=== PATIENT | female | born 1995 | race African-American/Black ===

== ENCOUNTER 2020-10-18 14:10 | Emergency (ER) | payer MEDICAID ==
--- NOTE | 2020-10-18 14:59 | ER Document Report ---
ED Medical Screen (RME) - General Chief Complaint: Dizziness Stated Complaint: DIZZINESS, WEAKNESS Time Seen by Provider: 10/18/20 14:52 Notes: Patient is a G2, P1 24-year-old female who presents the emergency department who presents to the emergency department with dizziness. Patient states that she has had on and off dizziness. He is 30 weeks . Patient has history of anemia. States she is having [place] contractions. Denies having regular contractions. Exam: Soft, nontender abdomen. I have greeted and performed a rapid initial assessment of this patient. A comprehensive ED assessment and evaluation of the patient, analysis of test results and completion of medical decision making process will be conducted by an additional ED providers. - Related Data Allergies/Adverse Reactions: No Known Allergies Allergy (Verified 10/18/20 14:46) Physical Exam - Vital signs Vitals: Temp Pulse Resp BP Pulse Ox 97.8 F 64 18 136/61 H 99 10/18/20 14:16 10/18/20 14:16 10/18/20 14:16 10/18/20 14:16 10/18/20 14:16 Course - Vital Signs Vital signs: Temp Pulse Resp BP Pulse Ox 97.8 F 64 18 136/61 H 99 10/18/20 14:16 10/18/20 14:16 10/18/20 14:16 10/18/20 14:16 10/18/20 14:16
[2020-10-18 15:32] LABS: ABSOLUTE EOSINOPHILS # (AUTO) 0.1 10^3/uL (0.0-0.6); ABSOLUTE NEUT (AUTO) 8.8 10^3/uL (1.7-8.2); BASOPHILS % (AUTO) 0.3 % (0-2); EOSINOPHILS % (AUTO) 0.6 % (0-6); HEMATOCRIT 32.9 % (36.0-47.0); HEMOGLOBIN 10.9 g/dL (12.0-15.5); LYMPHOCYTES % (AUTO) 17.1 % (13-45); MEAN CORPUSCULAR HEMOGLOBIN 27.9 pg (27.0-33.4); MEAN CORPUSCULAR HGB CONC 33.2 g/dL (32.0-36.0); MEAN CORPUSCULAR VOLUME 84 fl (80-97); MONOCYTES % (AUTO) 8.3 % (3-13); PLATELET COUNT 209 10^3/uL (150-450); RED BLOOD COUNT 3.92 10^6/uL (3.72-5.28); RED CELL DISTRIBUTION WIDTH 13.6 % (11.5-14.0); SEGMENTED NEUTROPHILS % (AUTO) 73.7 % (42-78); TOTAL CELLS COUNTED % (AUTO) 100 %
[2020-10-18 15:42] LABS: AMORPHOUS SEDIMENT,URINE TRACE /HPF; APPEARANCE,URINE CLOUDY; BILIRUBIN,URINE NEGATIVE (NEGATIVE); COLOR,URINE YELLOW; GLUCOSE, URINE NEGATIVE (NEGATIVE); KETONES,URINE NEGATIVE (NEGATIVE); LEUKOCYTE ESTERASE,URINE LARGE (NEGATIVE); NITRITE,URINE NEGATIVE (NEGATIVE); PROTEIN,URINE NEGATIVE (NEGATIVE); URINE SPECIFIC GRAVITY 1.012; UROBILINOGEN,URINE NEGATIVE mg/dL (<2.0)
[2020-10-18 15:50] LABS: ALBUMIN 3.4 g/dL (3.5-5.0); ALKALINE PHOSPHATASE 53 U/L (38-126); ANION GAP 9 (5-19); ASPARTATE AMINO TRANSFERASE 32 U/L (14-36); BILIRUBIN,TOTAL 0.3 mg/dL (0.2-1.3); BLOOD UREA NITROGEN 7 mg/dL (7-20); CARBON DIOXIDE 22 mmol/L (22-30); CHLORIDE 103 mmol/L (98-107); GLUCOSE 87 mg/dL (75-110); POTASSIUM 4.2 mmol/L (3.6-5.0); TOTAL PROTEIN 6.6 g/dL (6.3-8.2)
--- NOTE | 2020-10-18 16:27 | ER Document Report ---
ED Dizziness/Weakness - General Chief Complaint: Dizziness Stated Complaint: DIZZINESS, WEAKNESS Time Seen by Provider: 10/18/20 14:52 Mode of Arrival: Ambulatory Information source: Patient Notes: 24-year-old female 2 para 1, 30 weeks presents to the emergency room complaining of intermittent weakness for the past 2 weeks. States is felt very fatigued. Patient states she has had intermittent dizziness for the past 2 days. Comes and goes only last a few seconds. States she feels like the room is spinning. Denies any nausea, vomiting, no urinary symptoms. No abdominal discomfort. Occasional boxing headaches in the evening but currently without pain. No vaginal bleeding. OB care is up-to-date. States she was told at her last OB visit a couple weeks ago that she was slightly anemic. Not currently on any additional medications other than her vitamin. Denies any fevers. TRAVEL OUTSIDE OF THE [place] IN LAST 30 DAYS: No - Related Data Allergies/Adverse Reactions: No Known Allergies Allergy (Verified 10/18/20 14:46) Past Medical History - General Information source: Patient - Social History Smoking Status: Never Smoker Frequency of alcohol use: None Drug Abuse: None Family History: Reviewed & Not Pertinent Review of Systems - Review of Systems Constitutional: Weakness EENT: No symptoms reported Cardiovascular: Dizziness Respiratory: No symptoms reported Gastrointestinal: No symptoms reported Musculoskeletal: No symptoms reported Skin: No symptoms reported Hematologic/Lymphatic: Anemia Neurological/Psychological: Weakness. denies: Headaches -: Yes All other systems reviewed and negative Physical Exam - Vital signs Vitals: Temp Pulse Resp BP Pulse Ox 97.8 F 64 18 136/61 H 99 10/18/20 14:16 10/18/20 14:16 10/18/20 14:16 10/18/20 14:16 10/18/20 14:16 - Notes Notes: GENERAL: Mild acute distress, non-toxic appearance. HEAD: Normal with no signs of head trauma. EYES: PERRLA, EOMI, conjunctiva normal, no discharge. EARS: Hearing grossly intact. NOSE: Normal. THROAT: Oropharynx is normal. NECK: Normal range of motion, no tenderness, supple, no lymphadenopathy, No adenopathy, no JVD. CHEST: Clear breath sounds bilaterally. No wheezes, rales, or rhonchi. CARDIAC: Regular rate and rhythm. S1 and S2, without murmurs, gallops, or rubs. VASCULAR: No Edema. Peripheral pulses normal and equal in all extremities. ABDOMEN: Gravid abdomen with no tenderness, no masses or pulsatile masses. No organomegaly. Positive bowel sounds x4. No CVA tenderness noted bilaterally. GASTROINTESTINAL: Bowel sounds normal LYMPATHTIC: No lymphadenopathy noted. MUSCULOSKELETAL: Good range of motion of all major joints. Extremities without clubbing, cyanosis or edema. NEUROLOGICAL: Alert and oriented x 3. No focal sensory or strength deficits. Speech normal. Follows commands appropriately. Negative Nylan Barany syndrome. PSYCHIATRIC: Normal Affect, judgement and mood. SKIN: Normal appearance with no rashes or lesions. Course - Re-evaluation Re-evalutation: 10/18/20 16:29 heart tones 137. Patient patient is currently asymptomatic. No acute distress noted. Reviewed all lab results with patient. Reviewed hemoglobin of 10.9 with hematocrit of 32.9 which is higher than her last appointment 2 weeks ago. No nystagmus. Patient was counseled importance of getting plenty of rest. Drinking plenty fluids. Daily exercise. She is to call her CONTRACT ASSOCIATE for follow- up appointment. She is pain-free on exam. Denies any pain at this time. Patient was given strict return to the emergency room guidelines. Return for any new or worsening symptoms. All questions were answered. Patient verbalized understanding and agrees with plan of care. 10/18/20 16:56 - Vital Signs Vital signs: Temp Pulse Resp BP Pulse Ox 98.2 F 64 20 106/57 L 95 10/18/20 17:01 10/18/20 14:16 10/18/20 17:00 10/18/20 17:01 10/18/20 17:00 - Laboratory Result Diagrams: 10/18/20 15:14 10/18/20 15:14 Laboratory results interpreted by me: 10/18/20 10/18/20 10/18/20 15:14 15:14 15:14 WBC 12.0 H Hgb 10.9 L Hct 32.9 L Absolute Neuts (auto) 8.8 H Sodium 134.3 L Albumin 3.4 L Beta HCG, Quant 85968.00 H Ur Leukocyte Esterase LARGE H Discharge - Discharge Clinical Impression: Dizziness Fatigue Qualifiers: Fatigue type: -related Trimester: third trimester Qualified Code(s): O26.813 - related exhaustion and fatigue, third trimester Condition: Stable Disposition: HOME, SELF-CARE Instructions: Dizziness ([facility]), Fatigue ([facility]) Additional Instructions: Make sure you are getting adequate rest, some exercise,. Increase your fluids. Call your CONTRACT ASSOCIATE for an outpatient follow-up appointment. Return to the emergency room for any new or worsening symptoms.
[2020-10-18 17:09] VITALS: BP 106/57
== END 2020-10-18 17:08 | disposition home or self-care (01) ==
LOC: ER 14:10
DX: O26.893 Other specified pregnancy related conditions, third trimester (principal); R42 Dizziness and giddiness; R53.1 Weakness; O26.813 Pregnancy related exhaustion and fatigue, third trimester; O99.013 Anemia complicating pregnancy, third trimester; D64.9 Anemia, unspecified; Z3A.30 30 weeks gestation of pregnancy; Z79.899 Other long term (current) drug therapy
CPT/HCPCS: 36415; 80053; 81001; 83690; 84702; 85025; 87086; 99283

== ENCOUNTER 2020-12-04 23:56 | Outpatient (CLI) | payer MEDICAID ==
[2020-12-05 00:55] LABS: APPEARANCE,URINE CLEAR; BILIRUBIN,URINE NEGATIVE (NEGATIVE); COLOR,URINE YELLOW; GLUCOSE, URINE NEGATIVE (NEGATIVE); KETONES,URINE NEGATIVE (NEGATIVE); LEUKOCYTE ESTERASE,URINE LARGE (NEGATIVE); NITRITE,URINE NEGATIVE (NEGATIVE); PROTEIN,URINE NEGATIVE (NEGATIVE); UROBILINOGEN,URINE NEGATIVE mg/dL (<2.0)
[2020-12-05 01:23] LABS: URINE AMPHETAMINES SCREEN NEGATIVE; URINE BARBITURATES SCREEN NEGATIVE; URINE BENZODIAZEPINES SCREEN NEGATIVE; URINE COCAINE SCREEN NEGATIVE; URINE MARIJUANA (THC) SCREEN NEGATIVE; URINE METHADONE SCREEN NEGATIVE; URINE PHENCYCLIDINE SCREEN NEGATIVE
[2020-12-05] MEDS ORDERED: MAG HYDROX/AL HYDROX/SIMETH SUSP 30 ML UDCUP PO ONE (01:41)
[2020-12-05] MEDS ORDERED: MAG HYDROX/AL HYDROX/SIMETH SUSP 30 ML UDCUP ONE (01:42)
[2020-12-05] MEDS ORDERED: HYDROXYZINE PAMOATE 50 MG CAPSULE PO ONE (01:45)
[2020-12-05] MEDS ORDERED: HYDROXYZINE PAMOATE 50 MG CAPSULE ONE (02:36)
--- NOTE | 2020-12-05 03:23 | Non Stress Test Report ---
Non Stress Test Datetime Report Generated by CPN: 12/05/2020 03:23 DEMOGRAPHIC EGA NST: 37.0 INDICATION Indication for Study (NST) Other: lc VITAL SIGNS Temperature - NST: 98.2 Pulse - NST: 41 RESP - NST: 17 NBPSYS NST: 117 NBPDIA NST: 60 MONITORING Monitor Explained: Monitor Explained; Test Explained; Patient Verbalized Understanding Time on Monitor: 12/05/2020 00:15 Time off Monitor: 12/05/2020 02:50 NST Duration: 155 NST INTERVENTIONS NST Interventions: PO Hydration; Reposition Patient Physician Notified NST: Dr Cruz BABY A: [id number] BABY A Movement : Present Contraction Frequency : 3-7 FHR Baseline : 135 Accelerations : 15X15 Decelerations : None Variability : Moderate 6-25bpm NST Review: Meets Criteria for Reactive NST NST Review and Verified By : Ellis Calzada RN NST Results: Reactive NST REPORT Report Trigger: Send Report
== END 2020-12-05 02:58 | disposition home or self-care (01) ==
LOC: LC 23:56
PROVIDERS: ATTEND Obstetrics & Gynecology
DX: O47.1 False labor at or after 37 completed weeks of gestation (principal); Z3A.37 37 weeks gestation of pregnancy
CPT/HCPCS: 59025; 81005; 80307; 84112; J3490 ×2

== ENCOUNTER 2020-12-16 08:05 | Inpatient (IN) | payer MEDICAID ==
[2020-12-16] MEDS ORDERED: RINGERS SOLUTION,LACTATED 1,000 ML IV ONE (08:23)
[2020-12-16] MEDS ORDERED: RINGERS SOLUTION,LACTATED 1,000 ML IV PRN (08:23)
[2020-12-16] MEDS ORDERED: LIDOCAINE 1% INJ-PF (10 MG/ML) 30 ML SDV ONE (08:27)
[2020-12-16] MEDS ORDERED: OXYTOCIN 10 UNIT/ML VIAL ONE (08:27)
[2020-12-16] MEDS ORDERED: OXYTOCIN/0.9 % SODIUM CHLORIDE 30 UNIT/500 ML RTUINJ ONE (08:27)
[2020-12-16] MEDS ORDERED: MISOPROSTOL 0.2 MG TABLET ONE (08:27)
[2020-12-16] MEDS ORDERED: NALBUPHINE HCL INJ 10 MG/1 ML AMPULE INJ PRN (08:48)
[2020-12-16 09:00] LABS: APPEARANCE,URINE CLOUDY; BILIRUBIN,URINE NEGATIVE (NEGATIVE); COLOR,URINE YELLOW; GLUCOSE, URINE NEGATIVE (NEGATIVE); KETONES,URINE NEGATIVE (NEGATIVE); LEUKOCYTE ESTERASE,URINE LARGE (NEGATIVE); NITRITE,URINE NEGATIVE (NEGATIVE); PROTEIN,URINE 30 mg/dL (NEGATIVE); URINE SPECIFIC GRAVITY 1.012; UROBILINOGEN,URINE NEGATIVE mg/dL (<2.0)
--- NOTE | 2020-12-16 09:02 | Admission Physical ---
Datetime Report Generated by CPN: 12/16/2020 09:02 CURRENT ADMISSION Hx Assessment: The History has been Reviewed and is Current Chief Complaint: Uterine Contractions Chief Complaint Other: Contractions painful every 5 minutes. Admit Impression : Term, Intrauterine ; Active Labor Admit Plan: Admit to Unit; Initiate Labor Protocol ALLERGIES Medication Allergies: No Medication Allergies: No Known Allergies (12/05/2020) Latex: No Latex Allergies Food Allergies: none Environmental Allergies: none OBSTETRICAL HISTORY EDC: 12/26/2020 00:00 : 2 Para: 1 Term: 0 : 0 SAB: 0 IAB: 0 Ectopic: 0 Livin Cesareans: 0 VBACs: 0 Multiple Births: 0 Gestational Diabetes: No Rh Sensitization: No Incompetent Cervix: No ROSITA: No Infertility: No ART Treatment: No Uterine Anomaly: No IUGR: No Hx Previous C/S: No Macrosomia: No Hx Loss/Stillborn: No PIH: No Hx : No Placenta Previa/Abruption: No Depression/PP Depression: Yes PTL/PROM: No Post Hemorrhage: No Current Procedures: Ultrasound; NST Obstetrical History Comments: 2018 G2- Current SEE RECORDS Alcohol: No Marijuana : No Cocaine: No Other Illicit Drugs: No Cigarettes: Never Smoker. [id number] MEDICAL HISTORY Diabetes: No Blood Transfusion: No Pulmonary Disease (Asthma, TB): No Breast Disease: No Hypertension: No Occupational Therapist Home Based Surgery: No Heart Disease: No Hosp/Surgery: Yes Autoimmune Disorder: No Anesthetic Complications: No Kidney Disease: Yes Abnormal Pap Smear: No Neuro/Epilepsy: No Psychiatric Disorders: No Other Medical Diseases: No Hepatitis/Liver Disease: No Significant Family History: No Varicosities/Phlebitis: No Trauma/Violence : No Thyroid Dysfunction: No Medical History Comments: UTI, depression, anxiety, open heart surgery due to VSD in 1997 INFECTIOUS HISTORY Gonorrhea: No Genital Herpes: No Chlamydia: No Tuberculosis: No Syphilis: No Hepatitis: No HIV/AIDS Exposure: No Rash or Viral Illness: No HPV: No PHYSICAL EXAM General: Normal HEENT: Normal Neurologic: Normal Thyroid: Normal Heart: Normal Lungs: Normal Breast: Normal Back: Normal Abdomen: Normal Genitourinary Exam: Normal Extremities: Normal DTRs: Normal Pelvic Type: Adequate Vital Signs: Reviewed; Within Normal Limits VAGINAL EXAM Dilatation: 6 Effacement: 80 Station: -1 Contraction Comments: Every 3-4 minutes MEMBRANES Pooling: Negative Membranes: Intact FETUS A EGA: 38.4 Monitoring: External US FHR- Baseline: 125 Variability: Moderate 6-25bpm Accelerations: 15X15 Decelerations: None FHR Category: Category I Presentation: Vertex Admit Comment: at 38.4 wks EGA in active labor -Admit to LDR -NPO and IVFs: LR at 125 cc/hr after 1 liter bolus LR -CEFM and toco -GBS negative -Hixtory 1 prior . anticipate PLANS FOR LABOR AND DELIVERY Labor and Delivery: None Pain Management: Medications Other Pain Management Plans: IV medications Feeding Preference: Breast Benefit of Breast Feed Discussed: Yes Circumcision: N/A INFORMED CONSENT Informed Consent Obtained: Vaginal Delivery; Risks, Benefits and Alternatives Discussed Signature: with User ID: Jordan : with User ID: Jordan
[2020-12-16 09:16] LABS: ABSOLUTE LYMPHOCYTES (AUTO) 2.2 10^3/uL (0.5-4.7); ABSOLUTE MONOCYTES (AUTO) 0.7 10^3/uL (0.1-1.4); BASOPHILS % (AUTO) 0.4 % (0-2); EOSINOPHILS % (AUTO) 0.4 % (0-6); HEMATOCRIT 31.9 % (36.0-47.0); HEMOGLOBIN 10.4 g/dL (12.0-15.5); LYMPHOCYTES % (AUTO) 24.5 % (13-45); MEAN CORPUSCULAR HEMOGLOBIN 26.1 pg (27.0-33.4); MEAN CORPUSCULAR HGB CONC 32.6 g/dL (32.0-36.0); MEAN CORPUSCULAR VOLUME 80 fl (80-97); MONOCYTES % (AUTO) 7.3 % (3-13); PLATELET COUNT 172 10^3/uL (150-450); RED BLOOD COUNT 3.98 10^6/uL (3.72-5.28); RED CELL DISTRIBUTION WIDTH 15.4 % (11.5-14.0); SEGMENTED NEUTROPHILS % (AUTO) 67.4 % (42-78); TOTAL CELLS COUNTED % (AUTO) 100 %; WHITE BLOOD COUNT 8.9 10^3/uL (4.0-10.5)
[2020-12-16 09:28] LABS: URINE AMPHETAMINES SCREEN NEGATIVE; URINE BARBITURATES SCREEN NEGATIVE; URINE BENZODIAZEPINES SCREEN NEGATIVE; URINE COCAINE SCREEN NEGATIVE; URINE MARIJUANA (THC) SCREEN NEGATIVE; URINE METHADONE SCREEN NEGATIVE; URINE PHENCYCLIDINE SCREEN NEGATIVE
--- NOTE | 2020-12-16 10:26 | L&D Progress Notes ---
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 Cruz on unit and aware of status VAGINAL EXAM Dilatation: 6 Effacement: 80 Station: -1 Contractions: Every 3-4 minutes LAST VAGINAL EXAM-NURSING Nursing Exam Dilitation: 5.5 Nursing Exam Effacement: 80 Nursing Exam Station: -1 MEMBRANES Pooling: Negative Membranes: Intact FETUS A : 38.4 Presentation: Vertex SIGNATURE SIGNATURE: [id number];[id number];[id number] Assignment: Kasie Cruz MD Signature: with User ID: Leigh Ann : with User ID: Leigh Ann
[2020-12-16] MEDS ORDERED: NALBUPHINE HCL INJ 10 MG/1 ML AMPULE ONE (17:30)
[2020-12-16] MEDS ORDERED: ROPIVACAINE HCL 0.2% INJ/PF (2 MG/ML) 20 ML SDV ONE (18:16)
[2020-12-16] MEDS ORDERED: EPHEDRINE SULFATE INJ 50 MG/1 ML AMPULE ONE (18:16)
[2020-12-16] MEDS ORDERED: FENTANYL/BUPIVACAINE/NS/PF 0 MCG/0 ML RTUINJ EPI ONE (18:16)
[2020-12-16] MEDS ORDERED: ZOLPIDEM TARTRATE 5 MG TABLET PO PRN (18:48)
[2020-12-16] MEDS ORDERED: DIPH/PERTUSS(ACELL)/TETANUS VAC/PF 0.5 ML SYR (>=10YO) IM PRN (18:48)
[2020-12-16] MEDS ORDERED: DIPHENHYDRAMINE HCL 25 MG CAPSULE PO PRN (18:48)
[2020-12-16] MEDS ORDERED: PSEUDOEPHEDRINE HCL 30 MG TABLET PO PRN (18:48)
[2020-12-16] MEDS ORDERED: GLYCERIN/WITCH HAZEL LEAF 1 EACH MED..WIPE TP PRN (18:48)
[2020-12-16] MEDS ORDERED: ACETAMINOPHEN WITH CODEINE #3 TABLET PO PRN ×2 (18:48)
[2020-12-16] MEDS ORDERED: MEASLES,MUMPS&RUBELLA VACC/PF 0.5 ML VIAL SUBCUT PRN (18:48)
[2020-12-16] MEDS ORDERED: BENZOCAINE/MENTHOL AEROSOL SPRAY 56 ML TOP PRN (18:48)
[2020-12-16] MEDS ORDERED: DIBUCAINE 1% OINTMENT 28 GM TP PRN (18:48)
[2020-12-16] MEDS ORDERED: ACETAMINOPHEN 650 MG SUPP.RECT PR PRN (18:48)
[2020-12-16] MEDS ORDERED: VARICELLA VACC/PF (1350 UNIT/0.5 ML) 0.5 ML VIAL SUBCUT PRN (18:48)
[2020-12-16] MEDS ORDERED: OXYTOCIN/0.9 % SODIUM CHLORIDE 30 UNIT/500 ML RTUINJ IV PRN (18:48)
[2020-12-16] MEDS ORDERED: ACETAMINOPHEN 325 MG TABLET PO PRN (18:48)
[2020-12-16] MEDS ORDERED: FAMOTIDINE 20 MG TABLET PO PRN (18:48)
[2020-12-16] MEDS ORDERED: MAG HYDROX/AL HYDROX/SIMETH SUSP 30 ML UDCUP PO PRN (18:48)
[2020-12-16] MEDS ORDERED: MAGNESIUM HYDROXIDE SUSP 30 ML UDCUP PO PRN (18:48)
[2020-12-16] MEDS ORDERED: IBUPROFEN 800 MG TABLET PO SCH (19:00)
--- NOTE | 2020-12-16 19:21 | Warning Signs in Babies ---
VOD Warning Signs Datetime Report Generated by [facility]: 12/16/2020 19:21 VOD#608 -Warning Signs in Babies: Viewed with Parent(s)/Family (12/16/2020 19:20:Casey Torres RN)
[2020-12-16] MEDS ORDERED: IBUPROFEN 800 MG TABLET ONE (19:32)
--- NOTE | 2020-12-16 21:24 | Delivery Summary ---
Del Sum A-C Datetime Report Generated by CPN: 12/16/2020 21:23 DELIVERY PERSONNEL DELIVERY PERSONNEL: [id number] Delivery Doctor:: Kasie Cruz MD Labor and Delivery Nurse:: Kaylah Reyna RNdeputy chief sheriff Nurse:: RAD Juarez Nursery Nurse:: Darcie Robbins RN Nursery Nurse:: cass shah RN Environmental Protection Officer/MENTAL HYGIENIST: [facility], COLLEGE COUNSELOR MATERNAL INFORMATION Delivery Anesthesia: None Medications After Delivery: Pitocin Bolus-Please Comment; Pitocin 30 Units in 500ml NS/D5W; Cytotec 1000mcg Per Rectum/Vagina Meds After Delivery Comment: Pitocin 30 units in 500 ml ns open for bolus after delivery of infant Estimated Blood Loss (ml): 300 Delivery QBL: 300 Delivery QBL Comment: due to precipitous nature of delivery unable to collect QBL. Provider EBL completed Maternal Complications: None Provider Comments: Called to patients room as she was complete and plus 3 station. Pushed through one contraction and water broke as head delivered. After delivery of the head the shoulders and rest of the body delivered easily. Cord clamping delayed for 30 seconds and then cord cut and infant placed mothers chest. Oral suctioning done. Both Mother and infant stable. Uterine atony and cytotec 1,000mg given CA. Utierine massage done and fundus now firm. EBL 300cc . LABOR SUMMARY EDC: 12/26/2020 00:00 No. Babies in Womb: 1 Attempted: No Labor Anesthesia: IV Sedation LABOR INFORMATION Reason for Induction: Not Applicable Onset of Labor: 12/16/2020 06:00 Complete Dilatation: 12/16/2020 18:22 Oxytocin: Augmentation Group B Beta Strep: Negative Antibiotics # of Doses: n/a Name of Antibiotic Given: n/a Steroids Given: None Reason Steroids Not Administered: Not Applicable MEMBRANES Membranes Rupture Method: Spontaneous Rupture of Membranes: 12/16/2020 18:27 Length of Rupture (hr): 0.00 Amniotic Fluid Color: Clear Amniotic Fluid Amount: Small Amniotic Fluid Odor: Normal STAGES OF LABOR Stage 1 hr: 12 Stage 1 min: 22 Stage 2 hr: 0 Stage 2 min: 5 Stage 3 hr: -5 Stage 3 min: -54 Total Time in Labor hr: 6 Total Time in Labor min: 33 VAGINAL DELIVERY Episiotomy: None Laceration #1: None Laceration Extension #1: N/A Laceration Repair: Not Applicable Sponge Count Correct: N/A Sharps Count Correct: N/A CSECTION DELIVERY Primary Indication: N/A Secondary Indication: N/A CSection Incidence: N/A Labor: N/A Elective: N/A CSection Incision: N/A BABY A INFORMATION Delivery Date/Time: 12/16/2020 18:27 Method of Delivery: Vaginal Nurse Controlled Delivery: No Born in Route : No : N/A Forceps: N/A Vacuum Extraction: N/A Shoulder Dystocia : No PRESENTATION/POSITION BABY A Presentation: Cephalic Cephalic Presentation: Vertex Vertex Position: Right Occipital Anterior Breech Presentation: N/A PLACENTA INFORMATION BABY A Placenta Delivery Time : 12/16/2020 12:33 Placenta Method of Delivery: Spontaneous Placenta Status: Delivered SCORES BABY A Heart Rate 1 min: >100 bpm Resp Effort 1 min: Slow, Irregular Reflex Irritability 1 min: Cough or Sneeze or Pulls Away Muscle Tone 1 min: Active Motion Color 1 min: Blue/Pale Resuscitation Effort 1 min: Tactile Stimulation SCORE 1 MIN: 7 Heart Rate 5 min: >100 bpm Resp Effort 5 min: [place] Reflex Irritability 5 min: Cough or Sneeze or Pulls Away Muscle Tone 5 min: Active Motion Color 5 min: Body [place], Extremities Blue Resuscitation Effort 5 min: Tactile Stimulation; Oxygen SCORE 5 MIN: 9 INFANT INFORMATION BABY A Gestational Age at Delivery: 38.4 Gestational Status: Early Term- 37- 38.6 Weeks Infant Outcome : Liveborn Condition : Stable Infant Sex: Female IDENTIFICATION BABY A Infant Verification Date/Time: 12/16/2020 18:58 ID Band Number: [id number] Mother's Name Verified: Yes Infant RN Verifying Infant: R Bryant RN Additional Verifying Personnel: A Maribell RN WEIGHT/LENGTH BABY A Birthweight (gm): 3090 Infant Weight (lb): 6 Weight (oz): 13 Infant Length (in): 20.50 Length (cm): 52.07 CORD INFORMATION BABY A No. Cord Vessels: 3 Nuchal Cord : N/A Cord Blood Taken: Yes-For Eval (Mom's Blood Type - or O+) Suction: Mouth ASSESSMENT BABY A Complications: None Physical Findings at Delivery: Within Normal Limits Infant Respirations: Appears Normal Skin to Skin: Yes Skin to Skin Time (min): 45 Rotary Drier Feeder/ALS Called : No Infant Care By: T Itzel RN Transferred To: Remains with Mother BABY B INFORMATION : N/A SIGNATURES Signature: with User ID: Jordan : with User ID: Jordan
--- NOTE | 2020-12-16 21:24 | Birth Certificate Data ---
Cert Data Datetime Report Generated by CPN: 12/16/2020 21:23 CERTIFICATE DATA Delivery Provider: Kasie Cruz MD (12/05/2020 00:01:RAD Juarez) 47a. Care: Yes (12/05/2020 00:01:Chacha Wen RN) 47b. Date of First Visit: 06/03/2020 00:00 (12/05/2020 00:01:Kaylah Reyna RN) 47c. Date of Last Visit: 12/09/2020 00:00 (12/05/2020 00:01:Kaylah Reyna RN) 47d. Number of Visits: 9 (12/05/2020 00:01:Kaylah Reyna RN) 48a. Number of Prev Live Births: 1 (12/05/2020 00:01:Chacha Wen RN) 48b. Now Livin (12/05/2020 00:01:Chacha Wen RN) 48c. Live Births Now : 0 (12/05/2020 00:01:QS system process) 48d. Date of Last Live : 12/08/2018 00:00 (12/05/2020 00:01:Kaylah Reyna RN) 48e. Losses: 0 (12/05/2020 00:01:Chacha Wen RN) RISK FACTORS IN THIS 49a. Diabetes: No (12/05/2020 00:01:Margarito Calzada RN) 49b. Hypertension: No (12/05/2020 00:01:Margarito Calzada RN) 49c. Previous Births: 0 (12/05/2020 00:01:Chacha Wen RN) 49d. Stillborns: No (12/05/2020 00:01:Margarito Calzada RN) 49d. IUGR: No (12/05/2020 00:01:Margarito Calzada RN) 49e. Infertility Treatment: No (12/05/2020 00:01:Margarito Calzada RN) 49f. Previous Cesareans: 0 (12/05/2020 00:01:Chacha Wen RN) Mother's Height 50b. Height Inches: 67 (12/16/2020 20:46:QS system process) Mother's Weight 51a. Pre- Weight (lbs): 202 (12/05/2020 00:01:Margarito Calzada RN) 51b. Weight at Delivery (lbs): 209 (12/16/2020 20:46:QS system process) 52. Dt Last Normal Menses Began: 03/21/2020 00:00 (12/05/2020 00:01:Kaylah Reyna RN) Infections Present/Treated 53a. Gonorrhea: No (12/05/2020 00:01:Margarito Calzada RN) Results this Hospital Visit : Negative (12/05/2020 00:01:Kaylah Reyna RN) 53b. Syphilis: No (12/05/2020 00:01:Margarito Calzada RN) Results this Hospital Visit: NONREACTIVE (12/16/2020 08:44:QS system process) 53c. Chlamydia: No (12/05/2020 00:01:Margarito Calzada RN) Results this Hospital Visit: Negative (12/05/2020 00:01:Kaylah Reyna RN) 53d. Hepatitis B: No (12/05/2020 00:01:Margarito Calzada RN) Results this Hospital Visit: Negative (12/05/2020 00:01:Lilia Murphy RN) 53e. Hepatitis C: Negative (12/05/2020 00:01:Kaylah Reyna RN) 53h. Mother Tested for HBsAG: Yes (12/05/2020 00:01:Lilia Murphy RN) 53i. Date Tested: 08/23/2020 00:00 (12/05/2020 00:01:Kaylah Reyna RN) 53j. Test Result: Negative (12/05/2020 00:01:Lilia Murphy RN) Obstetric Procedures 54a, b, c. Obstetric Procedures: Ultrasound; NST (12/05/2020 00:01:Margarito Calzada RN) Cigarette Smoking Cigarette Smoking: Never Smoker. [id number] (12/05/2020 00:01:Margarito Calzada RN) 55a. 3 Months Before Preg - Ci (12/05/2020 00:01:Margarito Calzada RN) 55a. Packs: 0 (12/05/2020 00:01:Margarito Calzada RN) 55b. 1st Trimester of Preg- Ci (12/05/2020 00:01:Margarito Calzada RN) 55b. Packs: 0 (12/05/2020 00:01:Margarito Calzada RN) 55c. 2nd Trimester of Preg- Ci (12/05/2020 00:01:Margarito Calzada RN) 55c. Packs: 0 (12/05/2020 00:01:Margarito Calzada RN) 55d. 3rd Trimester of Preg- Ci (12/05/2020 00:01:Margarito Calzada RN) 55d. Packs: 0 (12/05/2020 00:01:Margarito Calzada RN) Onset of Labor 56a. PROM >12 Hrs: 0.00 (12/05/2020 00:01:QS system process) 56b. Precipitous Labor <3 Hrs: 6 (12/05/2020 00:01:QS system process) 56c. Prolonged Labor > 20 Hrs: 6 (12/05/2020 00:01:QS system process) 57a. Induction of Labor: Augmentation (12/05/2020 00:01:RAD Juarez) 57c. Non-Vertex Presentation A: Vertex (12/05/2020 00:01:Kaylah Reyna RN) 57d. Steroids - Lung Mat: None (12/05/2020 00:01:RAD Juarez) 57d. Steroids - Lung Mat: Not Applicable (12/05/2020 00:01:RAD Juarez) 57f. Mat [place] or Temp >100.4: 98.5 (12/05/2020 00:01:Kaylah Reyna RN) 57g. Moderate/Heavy Meconium: Clear (12/05/2020 00:01:RAD Juarez) 57h. Intolerance of Labor: N/A (12/05/2020 00:01:RAD Juarez) : N/A (12/05/2020 00:01:RAD Juarez) 57i. Epidural/Spinal Anesthesia: IV Sedation (12/05/2020 00:01:RAD Juarez) Method of Delivery 58a. Forceps - Unsuccessful A: N/A (12/05/2020 00:01:Kaylah Reyna RN) 58b. Vacuum - Unsuccessful A: N/A (12/05/2020 00:01:Kaylah Reyna RN) 58c. Presentation at 58c. Presentation at - A : Vertex (12/05/2020 00:01:Kaylah Reyna RN) 58c. Presentation at - A : N/A (12/05/2020 00:01:Kaylah Reyna RN) 58c. Presentation at - A : Cephalic (12/05/2020 00:01:Kaylah Reyna RN) Final Route and Method of Del 58d. Baby A Route/Delivery: Vaginal (12/16/2020 18:27:Kaylah Reyna RN) 58e. Trial of Labor Attempted: No (12/05/2020 00:01:RAD Juarez) 58e. Trial of Labor Attempted A: N/A (12/05/2020 00:01:Reyna Jeb, RNC) 58e. Trial of Labor Attempted B: N/A (12/05/2020 00:01:Reyna Camp, RNC) Maternal Morbidity 59b. 3rd or 4th Degree Lacs: None (12/05/2020 00:01:Kasie Cruz, MD) Birthweight Baby A: 3090 (12/05/2020 00:01:Casey Torres RN) 60a. Pounds : 6 (12/05/2020 00:01:QS system process) 60b. Ounces: 13 (12/05/2020 00:01:QS system process) 61. GA at Delivery Baby A: 38.4 (12/05/2020 00:01:Kaylah FRANKI Reyna) : Early Term- 37- 38.6 Weeks (12/05/2020 00:01:QS system process) 62a. 5 Minute Baby A: 9 (12/05/2020 00:01:QS system process)
[2020-12-17] MEDS: IBUPROFEN 800 MG TABLET PO SCH ×3 (01:12→18:09)
[2020-12-17 07:26] LABS: HEMOGLOBIN 9.2 g/dL (12.0-15.5); MEAN CORPUSCULAR HEMOGLOBIN 26.1 pg (27.0-33.4); MEAN CORPUSCULAR HGB CONC 32.8 g/dL (32.0-36.0); MEAN CORPUSCULAR VOLUME 80 fl (80-97); PLATELET COUNT 158 10^3/uL (150-450); RED BLOOD COUNT 3.52 10^6/uL (3.72-5.28); RED CELL DISTRIBUTION WIDTH 15.7 % (11.5-14.0); WHITE BLOOD COUNT 12.6 10^3/uL (4.0-10.5)
[2020-12-17] MEDS: DOCUSATE SODIUM 100 MG CAPSULE PO SCH ×2 (09:22→18:09)
[2020-12-17] MEDS: SENNOSIDES/DOCUSATE 8.6-50 MG 1 EACH TABLET PO SCH (09:31)
[2020-12-17] MEDS: FERROUS SULFATE 325 MG TABLET PO SCH ×2 (09:32→18:08)
[2020-12-17] MEDS ORDERED: PRENATAL VITAMIN W DHA CAPSULE PO SCH (10:00)
--- NOTE | 2020-12-17 10:54 | PDOC PROGRESS REPORT ---
Subjective-OB Progress Note for:: 12/17/20 - PP Day #1, doing well, no complaints, O+, Rubella Immune, Hx depression, will place pt bck on Lexapro 5 mg Physical Exam (OB) Vital Signs: Temp Pulse Resp BP Pulse Ox 98.1 F 53 L 16 101/55 L 100 12/17/20 07:42 12/17/20 07:42 12/17/20 07:42 12/17/20 07:42 12/17/20 07:42 Intake & Output 12/16/20 12/17/20 12/18/20 06:59 06:59 06:59 Intake Total 1400 300 Balance 1400 300 Weight 95.255 kg - General General Appearance: Appears well, Alert - PIH/Pre-Eclampsia Clonus: Negative Headache: Absent Epigastric Pain: No Visual Changes: No - Maternal Morbidity 59. Maternal Morbidity (serious complications experinced by the mother associated with labor and delivery: None of the above - Lochia Lochia Amount: Small 10-25 ml Lochia Color: Rubra/Red - Abdomen Description: Soft, Round Hernia Present: No Fundal Description: Firm, Midline Fundal Height: u/u - u/2 - Respiratory Respiratory Status: No respiratory distress - Abdominal Distension: No distension Tenderness: Nontender - Genitourinary Genitourinary Note: voiding - Extremities Upper extremity: Normal inspection Lower extremities: Normal inspection - Neurological Cognition: Normal Orientation: AAOx4 - Psychological Associated symptoms: Normal affect, Normal mood - Skin Skin Temperature: Warm Skin Moisture: Dry Objective-Diagnostic Laboratory: 12/17/20 06:32 12/17/20 06:32 WBC 12.6 H RBC 3.52 L Hgb 9.2 L Hct 28.0 L MCV 80 MCH 26.1 L MCHC 32.8 RDW 15.7 H Plt Count 158 Assessment and Plan(PN) - Assessment and Plan (1) (normal spontaneous vaginal delivery) Is this a current diagnosis for this admission?: Yes (2) Anemia affecting in third trimester Is this a current diagnosis for this admission?: Yes - Time Spent with Patient Time with patient: Less than 15 minutes Medications reviewed and adjusted accordingly: Yes - Disposition Anticipated Discharge Disposition: Home, Self Care Anticipated Discharge Timeframe: within 24 hours
[2020-12-17] MEDS: ESCITALOPRAM OXALATE 10 MG TABLET PO SCH (11:16)
[2020-12-18] MEDS: IBUPROFEN 800 MG TABLET PO SCH ×2 (02:33→09:53)
[2020-12-18 09:06] VITALS: BP 120/50
--- NOTE | 2020-12-18 09:44 | PDOC DISCHARGE SUMMARY ---
Impression - Admit/DC Date/PCP Admission Date/Primary Care Provider: 12/16/20 08:26 Discharge Date: 12/18/20 - Discharge Diagnosis (1) Anemia affecting in third trimester Is this a current diagnosis for this admission?: Yes (2) (normal spontaneous vaginal delivery) Is this a current diagnosis for this admission?: Yes - Additional Information Resuscitation Status: Full Code Discharge Diet: Regular Discharge Activity: Balance Activity w/Rest, Pelvic Rest Prescriptions: Ibuprofen [Motrin 800 mg Tablet] 800 mg PO Q8HP PRN #60 tablet PRN Reason: Home Medications: Escitalopram Oxalate [Lexapro 10 mg Tablet] 1 tab PO DAILY 12/05/20 Vitamin [-U Multiple Vitamin Capsule] 1 tab PO DAILY 12/05/20 Ibuprofen [Motrin 800 mg Tablet] 800 mg PO Q8HP PRN #60 tablet 12/18/20 HPI Reason(s) for Admission: Onset of Labor Procedures: NST Intrapartum Procedure(s): Spontaneous Vaginal Delivery Hospital Course 59. Maternal Morbidity (serious complications experinced by the mother associated with labor and delivery: None of the above Results Laboratory Results: WBC 12.6 10^3/uL (4.0-10.5) H 12/17/20 06:32 RBC 3.52 10^6/uL (3.72-5.28) L 12/17/20 06:32 Hgb 9.2 g/dL (12.0-15.5) L 12/17/20 06:32 Hct 28.0 % (36.0-47.0) L 12/17/20 06:32 MCV 80 fl (80-97) 12/17/20 06:32 MCH 26.1 pg (27.0-33.4) L 12/17/20 06:32 MCHC 32.8 g/dL (32.0-36.0) 12/17/20 06:32 RDW 15.7 % (11.5-14.0) H 12/17/20 06:32 Plt Count 158 10^3/uL (150-450) 12/17/20 06:32 Lymph % (Auto) 24.5 % (13-45) 12/16/20 08:44 [place] % (Auto) 7.3 % (3-13) 12/16/20 08:44 Eos % (Auto) 0.4 % (0-6) 12/16/20 08:44 Baso % (Auto) 0.4 % (0-2) 12/16/20 08:44 Absolute Neuts (auto) 6.0 10^3/uL (1.7-8.2) 12/16/20 08:44 Absolute Lymphs (auto) 2.2 10^3/uL (0.5-4.7) 12/16/20 08:44 Absolute Monos (auto) 0.7 10^3/uL (0.1-1.4) 12/16/20 08:44 Absolute Eos (auto) 0.0 10^3/uL (0.0-0.6) 12/16/20 08:44 Absolute Basos (auto) 0.0 10^3/uL (0.0-0.2) 12/16/20 08:44 Seg Neutrophils % 67.4 % (42-78) 12/16/20 08:44 Urine Color YELLOW 12/16/20 08:13 Urine Appearance CLOUDY 12/16/20 08:13 Urine pH 8.0 (5.0-9.0) 12/16/20 08:13 Ur Specific [place] 1.012 12/16/20 08:13 Urine Protein 30 mg/dL (NEGATIVE) H 12/16/20 08:13 Urine Glucose (UA) NEGATIVE mg/dL (NEGATIVE) 12/16/20 08:13 Urine Ketones NEGATIVE mg/dL (NEGATIVE) 12/16/20 08:13 Urine Blood NEGATIVE (NEGATIVE) 12/16/20 08:13 Urine Nitrite NEGATIVE (NEGATIVE) 12/16/20 08:13 Urine Bilirubin NEGATIVE (NEGATIVE) 12/16/20 08:13 Urine Urobilinogen NEGATIVE mg/dL (<2.0) 12/16/20 08:13 Ur Leukocyte Esterase LARGE (NEGATIVE) H 12/16/20 08:13 Urine Ascorbic Acid NEGATIVE (NEGATIVE) 12/16/20 08:13 Urine Opiates Screen NEGATIVE 12/16/20 08:13 Urine Methadone Screen NEGATIVE 12/16/20 08:13 Ur Barbiturates Screen NEGATIVE 12/16/20 08:13 Ur Phencyclidine Scrn NEGATIVE 12/16/20 08:13 Ur Amphetamines Screen NEGATIVE 12/16/20 08:13 U Benzodiazepines Scrn NEGATIVE 12/16/20 08:13 Urine Cocaine Screen NEGATIVE 12/16/20 08:13 U Marijuana (THC) Screen NEGATIVE 12/16/20 08:13 RPR NONREACTIVE (NONREACTIVE) 12/16/20 08:44 Blood Type O POSITIVE 12/16/20 08:44 Antibody Screen NEGATIVE 12/16/20 08:44 Plan Plan of Treatment: f/u at [facility] 4 wks Time Spent: Less than 30 Minutes
[2020-12-18] MEDS: ESCITALOPRAM OXALATE 10 MG TABLET PO SCH (09:53)
[2020-12-18] MEDS: SENNOSIDES/DOCUSATE 8.6-50 MG 1 EACH TABLET PO SCH (09:53)
[2020-12-18] MEDS: DOCUSATE SODIUM 100 MG CAPSULE PO SCH (09:53)
[2020-12-18] MEDS: FERROUS SULFATE 325 MG TABLET PO SCH (09:54)
== END 2020-12-18 12:37 | disposition home or self-care (01) | DRG 807 ==
LOC: LC 08:05 → LR 08:26 → 2S 20:46
PROVIDERS: ADMIT Obstetrics & Gynecology; ATTEND Obstetrics & Gynecology
PROC: 10E0XZZ Delivery of Products of Conception, External Approach (ICD-10-PCS; principal; 2020-12-16)
DX: O99.02 Anemia complicating childbirth (principal); Z37.0 Single live birth; D64.9 Anemia, unspecified; Z20.822 Contact with and (suspected) exposure to COVID-19; Z3A.38 38 weeks gestation of pregnancy
CPT/HCPCS: 36415; 80307; 81005; 85025; 85027; 86592; 86850; 86900; 86901; 94760; J2300; J2590; J2795; J3010; J3490